=== PATIENT | female | born 1965 | race Caucasian/White ===

== ENCOUNTER 2018-04-18 17:31 | Inpatient (IN) | payer MEDICAID ==
[~2018-04-18] VITALS: Ht 152.4 cm; Wt 62.1 kg
[~2018-04-18 17:31] MED LIST: ACET325T14 PO; ACID1GRA3 PO; ALPR0.254 PO; BISA10SU65 PR; ENOX60SY4 SQ; GABA300C10 PO; Magnesium Chloride PO; OXYC1TAB7 PO; [UNRECOGNIZED DRUG - REMARK]
[2018-04-18 18:45] LABS: BASOPHILS # (AUTO) 0.14 x10^3/uL (0-0.1); BASOPHILS % (AUTO) 1 % (0-1); EOSINOPHILS # (AUTO) 0.27 x10^3/uL (0-0.4); EOSINOPHILS % (AUTO) 2 % (1-7); LYMPHOCYTES # (AUTO) 2.06 x10^3/uL (1-3.4); LYMPHOCYTES % (AUTO) 17 % (22-44); MD NO; MEAN CORPUSCULAR HEMOGLOBIN 28.6 pg (27.0-34.8); MEAN CORPUSCULAR HGB CONC 33.4 g/dL (32.4-35.8); MEAN CORPUSCULAR VOLUME 85.7 fL (80-100); MEAN PLATELET VOLUME 8.2 fL (7.4-10.4); MONOCYTES # (AUTO) 0.89 x10^3/uL (0.2-0.8); MONOCYTES % (AUTO) 7 % (2-9); NEUTROPHILS # (AUTO) 8.74 x10^3/uL (1.8-6.8); NEUTROPHILS % (AUTO) 72 % (42-75); PLATELET COUNT 511 x10^3/uL (130-400); RED BLOOD COUNT 3.77 x10^6/uL (3.82-5.3); RED CELL DISTRIBUTION WIDTH 14.8 % (9.6-15.2)
[2018-04-18 18:56] LABS: ALBUMIN 3.1 g/dL (3.4-5.0); ANION GAP 9 mmol/L (5-15); CALCIUM 9.1 mg/dL (8.5-10.1); CHLORIDE 108 mmol/L (98-107); CREATININE 0.67 mg/dL (0.55-1.02)
[2018-04-18] MEDS ORDERED: MORPHINE SULFATE 4 MG/ML, 1ML IVPush ONE (19:00)
[2018-04-18] MEDS ORDERED: DIPHENHYDRAMINE 50 MG/ML, 1ML IVPush ONE (19:00)
[2018-04-18] MEDS ORDERED: MORPHINE SULFATE 4 MG/ML, 1ML ONE (19:02)
[2018-04-18] MEDS ORDERED: DIPHENHYDRAMINE 50 MG/ML, 1ML ONE (19:02)
[2018-04-18] MEDS ORDERED: PIPERACILLIN/TAZO/PMX 3.375GM 50 ML IV ONE (21:30)
[2018-04-18] MEDS ORDERED: VANCOMYCIN PER PHARMACY MC PRN ×2 (21:30→23:00)
[2018-04-18] MEDS ORDERED: PIPERACILLIN/TAZO/PMX 3.375GM 50 ML ONE (21:32)
[2018-04-18] MEDS ORDERED: VANCOMYCIN PMX 1GM/200ML 200 ML IV ONE ×2 (22:00→23:00)
[2018-04-18] MEDS ORDERED: PHARMACOKINETIC MONITORING MC PRN (22:00)
[2018-04-18 22:29] VITALS: BP 119/79
[2018-04-18] MEDS ORDERED: ACETAMINOPHEN 325 MG TABLET PO PRN (23:00)
[2018-04-18] MEDS ORDERED: ONDANSETRON 2MG/ML, 2ML IVPush PRN (23:00)
[2018-04-18] MEDS ORDERED: KETOROLAC 30 MG/1 ML IV PRN (23:00)
[2018-04-18] MEDS ORDERED: ENOXAPARIN 40 MG/0.4 ML SQ SCH (23:00)
[2018-04-18] MEDS ORDERED: hydrALAzine 20 MG/ML, 1ML IVPush PRN (23:00)
[2018-04-18] MEDS ORDERED: ENOXAPARIN SODIUM 60 MG SQ SCH (23:00)
[2018-04-18] MEDS ORDERED: BISACODYL 10 MG SUPP PR PRN (23:00)
[2018-04-18] MEDS: morphine SULFATE 10 MG/ML, 1ML IVPush PRN (23:29)
[2018-04-19] MEDS ORDERED: RIVA20TA PO (00:07)
[2018-04-19 02:41] VITALS: BP 115/71
[2018-04-19] MEDS: PIPERACILLIN/TAZO/PMX 3.375GM 50 ML IV SCH ×4 (03:23→21:01)
[2018-04-19 08:00] VITALS: BP 106/62
[2018-04-19 08:08] LABS: BASOPHILS # (AUTO) 0.05 x10^3/uL (0-0.1); BASOPHILS % (AUTO) 1 % (0-1); EOSINOPHILS # (AUTO) 0.33 x10^3/uL (0-0.4); EOSINOPHILS % (AUTO) 4 % (1-7); LYMPHOCYTES # (AUTO) 1.01 x10^3/uL (1-3.4); LYMPHOCYTES % (AUTO) 11 % (22-44); MD SCAN; MEAN CORPUSCULAR HEMOGLOBIN 28.1 pg (27.0-34.8); MEAN CORPUSCULAR HGB CONC 32.8 g/dL (32.4-35.8); MEAN CORPUSCULAR VOLUME 85.8 fL (80-100); MEAN PLATELET VOLUME 7.8 fL (7.4-10.4); MONOCYTES # (AUTO) 0.93 x10^3/uL (0.2-0.8); MONOCYTES % (AUTO) 10 % (2-9); NEUTROPHILS # (AUTO) 6.76 x10^3/uL (1.8-6.8); NEUTROPHILS % (AUTO) 75 % (42-75); PLATELET COUNT 453 x10^3/uL (130-400); RED BLOOD COUNT 3.56 x10^6/uL (3.82-5.3); RED CELL DISTRIBUTION WIDTH 15.2 % (9.6-15.2)
[2018-04-19 08:16] LABS: ANION GAP 9 mmol/L (5-15); CALCIUM 8.4 mg/dL (8.5-10.1); CHLORIDE 111 mmol/L (98-107); CREATININE 0.53 mg/dL (0.55-1.02)
[2018-04-19] MEDS: GABAPENTIN 300 MG CAPSULE PO PRN (09:04)
[2018-04-19] MEDS: RIVAROXABAN 20 MG TABLET PO SCH (09:04)
[2018-04-19] MEDS: LACTOBACILLUS 1GM/ PACKET PO SCH ×3 (09:04→21:01)
[2018-04-19] MEDS: OXYcodone/APAP 5/325MG TABLET PO PRN ×2 (09:04→18:15)
[2018-04-19] MEDS: MAGNESIUM CHLORIDE 64 MG TABLET.DR PO SCH ×2 (09:04→21:01)
[2018-04-19] MEDS: VANCOMYCIN PMX 1GM/200ML 200 ML IV SCH (13:14)
[2018-04-19] MEDS: ACETAMINOPHEN 325 MG TABLET PO SCH ×2 (13:14→21:01)
[2018-04-19 14:00] VITALS: BP 98/53
[2018-04-19] MEDS: morphine SULFATE 10 MG/ML, 1ML IVPush PRN ×2 (15:39→21:01)
[2018-04-19] MEDS: CARVEDILOL 3.125 MG TABLET PO SCH (17:51)
[2018-04-19 20:35] VITALS: BP 91/53
[2018-04-20] MEDS: VANCOMYCIN PMX 1GM/200ML 200 ML IV SCH (00:47)
[2018-04-20] MEDS: OXYcodone/APAP 5/325MG TABLET PO PRN ×3 (00:50→18:40)
[2018-04-20] MEDS: morphine SULFATE 10 MG/ML, 1ML IVPush PRN ×4 (03:51→20:42)
[2018-04-20] MEDS: ACETAMINOPHEN 325 MG TABLET PO SCH ×3 (03:51→17:27)
[2018-04-20] MEDS: PIPERACILLIN/TAZO/PMX 3.375GM 50 ML IV SCH ×4 (03:51→23:38)
[2018-04-20 03:54] VITALS: BP 88/44
[2018-04-20 05:45] VITALS: BP 99/64
[2018-04-20] MEDS: CARVEDILOL 3.125 MG TABLET PO SCH ×2 (06:00→17:34)
[2018-04-20 06:03] VITALS: BP 91/49
[2018-04-20 07:02] LABS: BASOPHILS # (AUTO) 0.11 x10^3/uL (0-0.1); BASOPHILS % (AUTO) 1 % (0-1); EOSINOPHILS # (AUTO) 0.68 x10^3/uL (0-0.4); EOSINOPHILS % (AUTO) 9 % (1-7); LYMPHOCYTES # (AUTO) 0.76 x10^3/uL (1-3.4); LYMPHOCYTES % (AUTO) 10 % (22-44); MD NO; MEAN CORPUSCULAR HEMOGLOBIN 28.7 pg (27.0-34.8); MEAN CORPUSCULAR HGB CONC 33.3 g/dL (32.4-35.8); MEAN CORPUSCULAR VOLUME 86.2 fL (80-100); MEAN PLATELET VOLUME 7.6 fL (7.4-10.4); MONOCYTES # (AUTO) 0.83 x10^3/uL (0.2-0.8); MONOCYTES % (AUTO) 11 % (2-9); NEUTROPHILS # (AUTO) 5.15 x10^3/uL (1.8-6.8); NEUTROPHILS % (AUTO) 68 % (42-75); PLATELET COUNT 431 x10^3/uL (130-400); RED BLOOD COUNT 3.29 x10^6/uL (3.82-5.3)
[2018-04-20 07:13] LABS: ANION GAP 8 mmol/L (5-15); CALCIUM 7.7 mg/dL (8.5-10.1); CHLORIDE 111 mmol/L (98-107); CREATININE 0.55 mg/dL (0.55-1.02)
[2018-04-20 08:31] VITALS: BP 102/64
[2018-04-20] MEDS: LACTOBACILLUS 1GM/ PACKET PO SCH ×3 (09:06→20:19)
[2018-04-20] MEDS: MAGNESIUM CHLORIDE 64 MG TABLET.DR PO SCH ×2 (09:06→20:19)
[2018-04-20] MEDS: RIVAROXABAN 15 MG TABLET PO SCH (09:06)
[2018-04-20] MEDS ORDERED: MAGNESIUM SULFATE PMX 4GM/100M 100 ML IV ONE (11:30)
[2018-04-20] MEDS ORDERED: POTASSIUM CHLORIDE 20 MEQ TAB.ER.PRT PO ONE (11:30)
[2018-04-20 14:45] VITALS: BP 92/54
[2018-04-20] MEDS: LINEZOLID 600 MG TABLET PO SCH (17:27)
[2018-04-20] MEDS: GABAPENTIN 300 MG CAPSULE PO PRN (17:27)
[2018-04-20 19:44] VITALS: BP 96/59
[2018-04-20] MEDS: LIDODERM 5% PATCH TD PRN (20:20)
[2018-04-20] MEDS: OXYcodone IR 5MG TABLET PO PRN (23:38)
[2018-04-21 00:26] VITALS: BP 99/65
[2018-04-21] MEDS: ACETAMINOPHEN 325 MG TABLET PO SCH ×4 (01:52→20:24)
[2018-04-21 05:41] VITALS: BP 95/61
[2018-04-21] MEDS: OXYcodone IR 5MG TABLET PO PRN ×3 (05:43→18:02)
[2018-04-21] MEDS: LINEZOLID 600 MG TABLET PO SCH ×2 (05:43→18:04)
[2018-04-21] MEDS: PIPERACILLIN/TAZO/PMX 3.375GM 50 ML IV SCH ×4 (05:43→23:31)
[2018-04-21] MEDS: CARVEDILOL 3.125 MG TABLET PO SCH ×2 (05:43→18:00)
[2018-04-21] MEDS: LACTOBACILLUS 1GM/ PACKET PO SCH ×3 (08:16→22:14)
[2018-04-21] MEDS: MAGNESIUM CHLORIDE 64 MG TABLET.DR PO SCH ×2 (08:17→22:03)
[2018-04-21] MEDS: RIVAROXABAN 20 MG TABLET PO SCH (08:17)
[2018-04-21 08:50] VITALS: BP 96/64
[2018-04-21] MEDS: morphine SULFATE 10 MG/ML, 1ML IVPush PRN ×3 (10:50→22:04)
[2018-04-21 14:50] VITALS: BP 100/68
[2018-04-21] MEDS: HYDROmorphone 2 MG/ML, 1ML IV PRN ×2 (14:52→15:25)
[2018-04-21 20:01] VITALS: BP 105/67
[2018-04-22 01:49] VITALS: BP 101/67
[2018-04-22] MEDS: ACETAMINOPHEN 325 MG TABLET PO SCH ×4 (02:46→20:31)
[2018-04-22] MEDS: morphine SULFATE 10 MG/ML, 1ML IVPush PRN ×3 (02:46→20:31)
[2018-04-22 05:40] LABS: CALCIUM 8.3 mg/dL (8.5-10.1); CHLORIDE 110 mmol/L (98-107)
[2018-04-22 05:44] LABS: ANION GAP 8 mmol/L (5-15); CREATININE 0.54 mg/dL (0.55-1.02)
[2018-04-22] MEDS: CARVEDILOL 3.125 MG TABLET PO SCH ×2 (05:51→18:03)
[2018-04-22] MEDS: PIPERACILLIN/TAZO/PMX 3.375GM 50 ML IV SCH ×3 (05:57→20:31)
[2018-04-22] MEDS: LINEZOLID 600 MG TABLET PO SCH ×2 (05:57→18:03)
[2018-04-22 07:40] VITALS: BP 112/72
[2018-04-22] MEDS: LACTOBACILLUS 1GM/ PACKET PO SCH ×3 (08:16→20:30)
[2018-04-22] MEDS: MAGNESIUM CHLORIDE 64 MG TABLET.DR PO SCH ×2 (08:26→20:31)
[2018-04-22] MEDS: OXYcodone IR 5MG TABLET PO PRN (08:26)
[2018-04-22] MEDS ORDERED: RIVAROXABAN 10 MG TABLET PO SCH (09:00)
[2018-04-22] MEDS: RIVAROXABAN 15 MG TABLET PO SCH (09:00)
[2018-04-22] MEDS ORDERED: HEPARIN wt. based STROKE protocol MC PRN (10:00)
[2018-04-22] MEDS ORDERED: MAGNESIUM SULFATE PMX 2GM/50ML 50 ML IV ONE (10:00)
[2018-04-22] MEDS ORDERED: HEPARIN 5,000 UNITS/ML, 1ML IV ONE (10:00)
[2018-04-22] MEDS ORDERED: HEPARIN 25,000 UNITS/500ML PMX 500 ML IV PRN (10:00)
[2018-04-22] MEDS ORDERED: HEPARIN 5,000 UNITS/ML, 1ML IV PRN (10:00)
[2018-04-22] MEDS ORDERED: FENTANYL PF 100 MCG/2ML ONE ×2 (12:04→12:42)
[2018-04-22] MEDS ORDERED: MIDAZOLAM 1 MG/ML, 2ML ONE (12:04)
[2018-04-22] MEDS ORDERED: PROPOFOL 10 MG/ML, 20ML ONE (12:05)
[2018-04-22] MEDS ORDERED: ONDANSETRON ODT 8 MG PO PRN (12:30)
[2018-04-22] MEDS ORDERED: hydrALAzine 20 MG/ML, 1ML IV PRN (12:30)
[2018-04-22] MEDS ORDERED: PROMETHAZINE 25 MG SUPP PR PRN (12:30)
[2018-04-22] MEDS ORDERED: HALOPERIDOL 5 MG/ML IV PRN (12:30)
[2018-04-22] MEDS ORDERED: OXYcodone 5 MG/5 ML ORAL.SOL UDC PO PRN (12:30)
[2018-04-22] MEDS ORDERED: HYDROmorphone 2 MG/ML, 1ML IVPush PRN (12:30)
[2018-04-22] MEDS ORDERED: MORPHINE SULFATE 4 MG/ML, 1ML IVPush PRN (12:30)
[2018-04-22] MEDS ORDERED: MEPERIDINE/PF 25MG/0.5ML IVPush PRN (12:30)
[2018-04-22] MEDS ORDERED: PROMETHAZINE 12.5 MG SUPP PR PRN (12:30)
[2018-04-22] MEDS ORDERED: FENTANYL PF 100 MCG/2ML IV PRN (12:30)
[2018-04-22] MEDS ORDERED: PROMETHAZINE 25 MG/ML, 1ML IV PRN (12:30)
[2018-04-22] MEDS ORDERED: ONDANSETRON 2MG/ML, 2ML IV PRN (12:30)
[2018-04-22] MEDS ORDERED: LABETALOL 5MG/ML, 20ML IV PRN (12:30)
[2018-04-22] MEDS ORDERED: PROMETHAZINE 25 MG/ML, 1ML IM PRN ×2 (12:30)
[2018-04-22] MEDS ORDERED: ACETAMINOPHEN 650 MG/20.3 ML UDC ONE (14:02)
[2018-04-22] MEDS ORDERED: OXYcodone 5 MG/5 ML ORAL.SOL UDC ONE (14:02)
[2018-04-22 14:40] VITALS: BP 101/63
[2018-04-22 20:14] VITALS: BP 103/66
[2018-04-23] MEDS: morphine SULFATE 10 MG/ML, 1ML IVPush PRN ×4 (00:56→21:13)
[2018-04-23 01:58] VITALS: BP 109/64
[2018-04-23] MEDS: ACETAMINOPHEN 325 MG TABLET PO SCH ×4 (02:10→21:12)
[2018-04-23] MEDS: GABAPENTIN 300 MG CAPSULE PO PRN ×2 (02:10→14:51)
[2018-04-23] MEDS: PIPERACILLIN/TAZO/PMX 3.375GM 50 ML IV SCH ×4 (03:04→21:13)
[2018-04-23] MEDS: LINEZOLID 600 MG TABLET PO SCH ×2 (05:30→17:33)
[2018-04-23] MEDS: CARVEDILOL 3.125 MG TABLET PO SCH ×2 (05:30→17:33)
[2018-04-23 06:11] LABS: ANION GAP 9 mmol/L (5-15); CALCIUM 8.4 mg/dL (8.5-10.1); CHLORIDE 112 mmol/L (98-107)
[2018-04-23 06:21] LABS: MEAN CORPUSCULAR HEMOGLOBIN 28.4 pg (27.0-34.8); MEAN CORPUSCULAR HGB CONC 33.1 g/dL (32.4-35.8); MEAN CORPUSCULAR VOLUME 85.7 fL (80-100); MEAN PLATELET VOLUME 7.8 fL (7.4-10.4); PLATELET COUNT 521 x10^3/uL (130-400); RED CELL DISTRIBUTION WIDTH 14.7 % (9.6-15.2)
[2018-04-23 07:02] LABS: BASOPHILS # (AUTO) 0.04 x10^3/uL (0-0.1); BASOPHILS % (AUTO) 1 % (0-1); EOSINOPHILS # (AUTO) 0.41 x10^3/uL (0-0.4); EOSINOPHILS % (AUTO) 9 % (1-7); LYMPHOCYTES # (AUTO) 1.49 x10^3/uL (1-3.4); LYMPHOCYTES % (AUTO) 34 % (22-44); MD SCAN; MONOCYTES # (AUTO) 0.65 x10^3/uL (0.2-0.8); MONOCYTES % (AUTO) 15 % (2-9); NEUTROPHILS # (AUTO) 1.84 x10^3/uL (1.8-6.8); NEUTROPHILS % (AUTO) 42 % (42-75)
[2018-04-23 08:23] VITALS: BP 115/66
[2018-04-23] MEDS: MAGNESIUM CHLORIDE 64 MG TABLET.DR PO SCH (09:19)
[2018-04-23] MEDS: RIVAROXABAN 20 MG TABLET PO SCH (09:19)
[2018-04-23] MEDS: LACTOBACILLUS 1GM/ PACKET PO SCH ×3 (09:19→21:12)
[2018-04-23 15:55] VITALS: BP 106/67
[2018-04-23 20:00] VITALS: BP 100/64
[2018-04-23] MEDS: MAGNESIUM CHLORIDE 70MG TAB DR PO SCH (21:10)
[2018-04-24] MEDS: OXYcodone IR 5MG TABLET PO PRN ×2 (00:02→11:55)
[2018-04-24] MEDS: GABAPENTIN 300 MG CAPSULE PO PRN ×2 (00:03→15:22)
[2018-04-24 02:00] VITALS: BP 99/64
[2018-04-24] MEDS: ACETAMINOPHEN 325 MG TABLET PO SCH ×4 (03:23→21:19)
[2018-04-24] MEDS: PIPERACILLIN/TAZO/PMX 3.375GM 50 ML IV SCH ×4 (03:23→23:18)
[2018-04-24] MEDS: CARVEDILOL 3.125 MG TABLET PO SCH (05:41)
[2018-04-24] MEDS: LINEZOLID 600 MG TABLET PO SCH ×2 (05:41→16:48)
[2018-04-24 05:54] LABS: BASOPHILS # (AUTO) 0.03 x10^3/uL (0-0.1); BASOPHILS % (AUTO) 1 % (0-1); EOSINOPHILS # (AUTO) 0.42 x10^3/uL (0-0.4); EOSINOPHILS % (AUTO) 8 % (1-7); LYMPHOCYTES # (AUTO) 1.73 x10^3/uL (1-3.4); LYMPHOCYTES % (AUTO) 33 % (22-44); MD NO; MEAN CORPUSCULAR HGB CONC 32.5 g/dL (32.4-35.8); MEAN CORPUSCULAR VOLUME 86.3 fL (80-100); MEAN PLATELET VOLUME 7.8 fL (7.4-10.4); MONOCYTES # (AUTO) 0.64 x10^3/uL (0.2-0.8); MONOCYTES % (AUTO) 12 % (2-9); NEUTROPHILS # (AUTO) 2.44 x10^3/uL (1.8-6.8); NEUTROPHILS % (AUTO) 46 % (42-75); PLATELET COUNT 540 x10^3/uL (130-400); RED BLOOD COUNT 3.65 x10^6/uL (3.82-5.3); RED CELL DISTRIBUTION WIDTH 14.7 % (9.6-15.2)
[2018-04-24 05:56] LABS: CHLORIDE 114 mmol/L (98-107)
[2018-04-24 06:00] LABS: ANION GAP 8 mmol/L (5-15); CALCIUM 8.5 mg/dL (8.5-10.1); CREATININE 0.51 mg/dL (0.55-1.02)
[2018-04-24] MEDS: MAGNESIUM CHLORIDE 70MG TAB DR PO SCH ×2 (09:00→21:19)
[2018-04-24] MEDS: LACTOBACILLUS 1GM/ PACKET PO SCH ×3 (09:00→21:19)
[2018-04-24] MEDS: morphine SULFATE 10 MG/ML, 1ML IVPush PRN ×3 (09:22→21:20)
[2018-04-24] MEDS: RIVAROXABAN 15 MG TABLET PO SCH (09:22)
[2018-04-24] MEDS ORDERED: FLUMAZENIL 0.1 MG/1 ML, 5ML ONE (09:28)
[2018-04-24] MEDS ORDERED: NALOXONE 1 MG/ML, 2ML ONE (09:28)
[2018-04-24] MEDS ORDERED: MIDAZOLAM 1 MG/ML, 5ML ONE ×2 (09:28→09:58)
[2018-04-24] MEDS ORDERED: GADOBUTROL 7.5 MMOL/7.5 ML PFS ONE (10:51)
[2018-04-24 15:13] VITALS: BP 132/86
[2018-04-24] MEDS: HYDROmorphone 2 MG/ML, 1ML IV PRN (15:22)
[2018-04-24 19:40] VITALS: BP 111/73
[2018-04-25 01:28] VITALS: BP 93/54
[2018-04-25] MEDS: ACETAMINOPHEN 325 MG TABLET PO SCH ×4 (03:35→21:44)
[2018-04-25] MEDS: PIPERACILLIN/TAZO/PMX 3.375GM 50 ML IV SCH ×3 (05:12→18:24)
[2018-04-25] MEDS: LINEZOLID 600 MG TABLET PO SCH ×2 (05:12→18:24)
[2018-04-25 08:28] VITALS: BP 115/78
[2018-04-25] MEDS: RIVAROXABAN 20 MG TABLET PO SCH (08:50)
[2018-04-25] MEDS: MAGNESIUM CHLORIDE 70MG TAB DR PO SCH ×2 (08:50→21:44)
[2018-04-25] MEDS: morphine SULFATE 10 MG/ML, 1ML IVPush PRN ×3 (08:50→21:43)
[2018-04-25] MEDS: LACTOBACILLUS 1GM/ PACKET PO SCH ×3 (08:50→21:44)
[2018-04-25 15:55] VITALS: BP 107/65
[2018-04-25 19:26] VITALS: BP 136/88
[2018-04-25] MEDS: GABAPENTIN 300 MG CAPSULE PO PRN (21:43)
[2018-04-26] MEDS: PIPERACILLIN/TAZO/PMX 3.375GM 50 ML IV SCH ×5 (00:18→23:37)
[2018-04-26 00:51] VITALS: BP 111/70
[2018-04-26] MEDS: ACETAMINOPHEN 325 MG TABLET PO SCH ×4 (03:40→20:57)
[2018-04-26 04:32] LABS: BASOPHILS # (AUTO) 0.03 x10^3/uL (0-0.1); BASOPHILS % (AUTO) 1 % (0-1); EOSINOPHILS # (AUTO) 0.45 x10^3/uL (0-0.4); EOSINOPHILS % (AUTO) 6 % (1-7); LYMPHOCYTES # (AUTO) 2.25 x10^3/uL (1-3.4); LYMPHOCYTES % (AUTO) 31 % (22-44); MD NO; MEAN CORPUSCULAR HEMOGLOBIN 28.1 pg (27.0-34.8); MEAN CORPUSCULAR HGB CONC 33.2 g/dL (32.4-35.8); MEAN CORPUSCULAR VOLUME 84.6 fL (80-100); MEAN PLATELET VOLUME 7.3 fL (7.4-10.4); MONOCYTES % (AUTO) 8 % (2-9); NEUTROPHILS # (AUTO) 3.95 x10^3/uL (1.8-6.8); NEUTROPHILS % (AUTO) 54 % (42-75); PLATELET COUNT 527 x10^3/uL (130-400); RED BLOOD COUNT 3.54 x10^6/uL (3.82-5.3)
[2018-04-26 04:47] LABS: ALBUMIN 2.1 g/dL (3.4-5.0); ANION GAP 9 mmol/L (5-15); CALCIUM 8.4 mg/dL (8.5-10.1); CHLORIDE 113 mmol/L (98-107)
[2018-04-26 04:50] LABS: ALANINE AMINOTRANSFERASE 22 U/L (12-78); ALKALINE PHOSPHATASE 81 U/L (45-117); BILIRUBIN,TOTAL 0.2 mg/dL (0.2-1.0); CREATININE 0.58 mg/dL (0.55-1.02); TOTAL PROTEIN 5.6 g/dL (6.4-8.2)
[2018-04-26] MEDS: LINEZOLID 600 MG TABLET PO SCH ×2 (06:06→17:20)
[2018-04-26 07:53] VITALS: BP 99/64
[2018-04-26] MEDS: morphine SULFATE 10 MG/ML, 1ML IVPush PRN ×3 (08:51→20:52)
[2018-04-26] MEDS: RIVAROXABAN 15 MG TABLET PO SCH (08:54)
[2018-04-26] MEDS: LACTOBACILLUS 1GM/ PACKET PO SCH ×3 (08:54→20:52)
[2018-04-26] MEDS: MAGNESIUM CHLORIDE 70MG TAB DR PO SCH ×2 (08:55→20:51)
[2018-04-26] MEDS: HYDROmorphone 2 MG/ML, 1ML IV PRN (10:20)
[2018-04-26 13:39] VITALS: BP 102/68
[2018-04-26] MEDS: ENOXAPARIN 60 MG/0.6 ML SQ SCH (15:05)
[2018-04-26 15:10] LABS: INTERNATIONAL NORMALIZED RATIO 1.41 (0.93-1.1); PROTHROMBIN TIME 14.8 Seconds (9.6-11.5)
[2018-04-26] MEDS ORDERED: WARFARIN 7.5 MG TABLET PO-COUM ONE (17:00)
[2018-04-26 19:22] VITALS: BP 101/62
[2018-04-27 02:38] VITALS: BP 108/69
[2018-04-27] MEDS: ACETAMINOPHEN 325 MG TABLET PO SCH ×4 (02:48→22:19)
[2018-04-27] MEDS: GABAPENTIN 300 MG CAPSULE PO PRN (02:48)
[2018-04-27] MEDS: morphine SULFATE 10 MG/ML, 1ML IVPush PRN ×4 (02:49→22:20)
[2018-04-27] MEDS: LINEZOLID 600 MG TABLET PO SCH ×2 (05:20→18:27)
[2018-04-27] MEDS: PIPERACILLIN/TAZO/PMX 3.375GM 50 ML IV SCH ×3 (05:21→18:26)
[2018-04-27] MEDS: ENOXAPARIN 60 MG/0.6 ML SQ SCH ×2 (05:21→18:27)
[2018-04-27 05:47] LABS: BASOPHILS # (AUTO) 0.04 x10^3/uL (0-0.1); BASOPHILS % (AUTO) 1 % (0-1); EOSINOPHILS # (AUTO) 0.49 x10^3/uL (0-0.4); EOSINOPHILS % (AUTO) 7 % (1-7); LYMPHOCYTES # (AUTO) 2.13 x10^3/uL (1-3.4); LYMPHOCYTES % (AUTO) 29 % (22-44); MD NO; MEAN CORPUSCULAR HEMOGLOBIN 27.8 pg (27.0-34.8); MEAN CORPUSCULAR HGB CONC 32.7 g/dL (32.4-35.8); MEAN CORPUSCULAR VOLUME 85.1 fL (80-100); MEAN PLATELET VOLUME 7.7 fL (7.4-10.4); MONOCYTES # (AUTO) 0.63 x10^3/uL (0.2-0.8); MONOCYTES % (AUTO) 9 % (2-9); NEUTROPHILS # (AUTO) 4.11 x10^3/uL (1.8-6.8); NEUTROPHILS % (AUTO) 56 % (42-75); PLATELET COUNT 508 x10^3/uL (130-400); RED BLOOD COUNT 3.71 x10^6/uL (3.82-5.3); RED CELL DISTRIBUTION WIDTH 15.2 % (9.6-15.2)
[2018-04-27 05:51] LABS: INTERNATIONAL NORMALIZED RATIO 1.07 (0.93-1.1); PROTHROMBIN TIME 11.3 Seconds (9.6-11.5)
[2018-04-27 05:55] LABS: ALANINE AMINOTRANSFERASE 23 U/L (12-78); ALBUMIN 2.4 g/dL (3.4-5.0); ANION GAP 7 mmol/L (5-15); C-REACTIVE PROTEIN, QUANT 0.86 mg/dL (0.02-0.49); CALCIUM 8.3 mg/dL (8.5-10.1); CHLORIDE 113 mmol/L (98-107); CREATININE 0.53 mg/dL (0.55-1.02)
[2018-04-27 05:58] LABS: ALKALINE PHOSPHATASE 83 U/L (45-117); BILIRUBIN,TOTAL 0.2 mg/dL (0.2-1.0); TOTAL PROTEIN 5.8 g/dL (6.4-8.2)
[2018-04-27 06:15] LABS: HCT (SEDRATE) 31.5 % (34.6-47.8)
[2018-04-27 07:24] VITALS: BP 96/62
[2018-04-27 08:39] LABS: BASOPHILS # (AUTO) 0.04 x10^3/uL (0-0.1); BASOPHILS % (AUTO) 1 % (0-1); EOSINOPHILS # (AUTO) 0.47 x10^3/uL (0-0.4); EOSINOPHILS % (AUTO) 7 % (1-7); LYMPHOCYTES # (AUTO) 2.37 x10^3/uL (1-3.4); LYMPHOCYTES % (AUTO) 34 % (22-44); MD NO; MEAN CORPUSCULAR HGB CONC 32.7 g/dL (32.4-35.8); MEAN CORPUSCULAR VOLUME 85.6 fL (80-100); MEAN PLATELET VOLUME 7.5 fL (7.4-10.4); MONOCYTES # (AUTO) 0.54 x10^3/uL (0.2-0.8); MONOCYTES % (AUTO) 8 % (2-9); NEUTROPHILS # (AUTO) 3.56 x10^3/uL (1.8-6.8); NEUTROPHILS % (AUTO) 51 % (42-75); PLATELET COUNT 513 x10^3/uL (130-400); RED BLOOD COUNT 3.84 x10^6/uL (3.82-5.3); RED CELL DISTRIBUTION WIDTH 15.1 % (9.6-15.2)
[2018-04-27 08:49] LABS: ALANINE AMINOTRANSFERASE 23 U/L (12-78); ALBUMIN 2.4 g/dL (3.4-5.0); ANION GAP 10 mmol/L (5-15); CALCIUM 8.8 mg/dL (8.5-10.1); CHLORIDE 112 mmol/L (98-107); CREATININE 0.57 mg/dL (0.55-1.02)
[2018-04-27 08:51] LABS: ALKALINE PHOSPHATASE 86 U/L (45-117); BILIRUBIN,TOTAL 0.3 mg/dL (0.2-1.0); TOTAL PROTEIN 6.1 g/dL (6.4-8.2)
[2018-04-27] MEDS: LACTOBACILLUS 1GM/ PACKET PO SCH ×3 (09:51→22:19)
[2018-04-27] MEDS: MAGNESIUM CHLORIDE 70MG TAB DR PO SCH ×2 (09:51→22:19)
[2018-04-27] MEDS: WARFARIN MODERAT DOSE PROTOCOL XX SCH (12:00)
[2018-04-27 12:50] VITALS: BP 103/69
[2018-04-27] MEDS ORDERED: WARFARIN 7.5 MG TABLET PO-COUM ONE (18:00)
[2018-04-27] MEDS: OXYcodone IR 5MG TABLET PO PRN (18:32)
[2018-04-27 19:43] VITALS: BP 105/66
[2018-04-27] MEDS: LIDODERM 5% PATCH TD PRN (22:19)
[2018-04-28] MEDS: PIPERACILLIN/TAZO/PMX 3.375GM 50 ML IV SCH ×2 (01:28→08:49)
[2018-04-28 03:21] VITALS: BP 98/64
[2018-04-28] MEDS: OXYcodone IR 5MG TABLET PO PRN ×2 (03:33→16:33)
[2018-04-28 05:49] LABS: BASOPHILS # (AUTO) 0.11 x10^3/uL (0-0.1); BASOPHILS % (AUTO) 2 % (0-1); EOSINOPHILS % (AUTO) 6 % (1-7); LYMPHOCYTES # (AUTO) 2.16 x10^3/uL (1-3.4); LYMPHOCYTES % (AUTO) 30 % (22-44); MD NO; MEAN CORPUSCULAR HEMOGLOBIN 28.4 pg (27.0-34.8); MEAN CORPUSCULAR HGB CONC 33.1 g/dL (32.4-35.8); MEAN CORPUSCULAR VOLUME 85.8 fL (80-100); MEAN PLATELET VOLUME 7.4 fL (7.4-10.4); MONOCYTES % (AUTO) 8 % (2-9); NEUTROPHILS # (AUTO) 3.97 x10^3/uL (1.8-6.8); NEUTROPHILS % (AUTO) 55 % (42-75); PLATELET COUNT 485 x10^3/uL (130-400); RED BLOOD COUNT 3.87 x10^6/uL (3.82-5.3); RED CELL DISTRIBUTION WIDTH 15.4 % (9.6-15.2)
[2018-04-28 05:57] LABS: INTERNATIONAL NORMALIZED RATIO 1.08 (0.93-1.1); PROTHROMBIN TIME 11.4 Seconds (9.6-11.5)
[2018-04-28 06:03] LABS: ALBUMIN 2.5 g/dL (3.4-5.0); ANION GAP 9 mmol/L (5-15); CALCIUM 8.9 mg/dL (8.5-10.1); CHLORIDE 113 mmol/L (98-107); CREATININE 0.58 mg/dL (0.55-1.02)
[2018-04-28] MEDS: ACETAMINOPHEN 325 MG TABLET PO SCH ×2 (06:12→12:02)
[2018-04-28] MEDS: LINEZOLID 600 MG TABLET PO SCH (06:12)
[2018-04-28] MEDS: ENOXAPARIN 60 MG/0.6 ML SQ SCH ×2 (06:13→16:34)
[2018-04-28] MEDS: morphine SULFATE 10 MG/ML, 1ML IVPush PRN ×2 (06:13→10:33)
[2018-04-28 07:16] VITALS: BP 94/56
[2018-04-28] MEDS: LACTOBACILLUS 1GM/ PACKET PO SCH ×2 (08:50→16:33)
[2018-04-28] MEDS: MAGNESIUM CHLORIDE 70MG TAB DR PO SCH (08:50)
[2018-04-28] MEDS ORDERED: WARF3TAB52 PO (09:39)
[2018-04-28] MEDS ORDERED: LINE600T33 PO (09:39)
[2018-04-28] MEDS ORDERED: CIPROFLOXACIN 500 MG TABLET PO SCH (10:30)
[2018-04-28] MEDS ORDERED: DAPTOMYCIN 370 MG in SODIUM CHLORIDE 0.9% 100 ML IVPB SCH (10:30)
[2018-04-28] MEDS ORDERED: HYDROmorphone 2 MG/ML, 1ML IVPush PRN (11:30)
[2018-04-28] MEDS: WARFARIN MODERAT DOSE PROTOCOL XX SCH (12:00)
[2018-04-28 12:01] VITALS: BP 105/71
[2018-04-28] MEDS ORDERED: WARF7.5T46 PO (12:56)
[2018-04-28] MEDS ORDERED: CIPR500T87 PO (12:56)
[2018-04-28 14:00] VITALS: BP 125/80
[2018-04-28] MEDS ORDERED: WARFARIN 7.5 MG TABLET PO-COUM ONE (18:00)
== END 2018-04-28 17:35 | DRG 853 ==
LOC: ED 20:22 → 3NE 21:16
PROVIDERS: ADMIT Internal Medicine; ATTEND Internal Medicine
PROC: 0JDN0ZZ Extraction of Right Lower Leg Subcutaneous Tissue and Fascia, Open Approach (ICD-10-PCS; 2018-04-22)
PROC: 0JDP0ZZ Extraction of Left Lower Leg Subcutaneous Tissue and Fascia, Open Approach (ICD-10-PCS; 2018-04-22)
PROC: 0JDQ0ZZ Extraction of Right Foot Subcutaneous Tissue and Fascia, Open Approach (ICD-10-PCS; 2018-04-22)
PROC: 0JDR0ZZ Extraction of Left Foot Subcutaneous Tissue and Fascia, Open Approach (ICD-10-PCS; principal; 2018-04-22 12:00)
PROC: 02HV33Z Insertion of Infusion Device into Superior Vena Cava, Percutaneous Approach (ICD-10-PCS; 2018-04-28)
PROC: B5181ZA Fluoroscopy of Superior Vena Cava using Low Osmolar Contrast, Guidance (ICD-10-PCS; 2018-04-28)
PROC: B548ZZA Ultrasonography of Superior Vena Cava, Guidance (ICD-10-PCS; 2018-04-28)
DX: A41.9 Sepsis, unspecified organism (principal); R53.2 Functional quadriplegia; L97.919 Non-pressure chronic ulcer of unspecified part of right lower leg with unspecified severity; L97.929 Non-pressure chronic ulcer of unspecified part of left lower leg with unspecified severity; M87.9 Osteonecrosis, unspecified; L03.116 Cellulitis of left lower limb; L03.115 Cellulitis of right lower limb; D63.8 Anemia in other chronic diseases classified elsewhere; E83.42 Hypomagnesemia; E87.6 Hypokalemia; F17.200 Nicotine dependence, unspecified, uncomplicated; F31.9 Bipolar disorder, unspecified; F41.1 Generalized anxiety disorder; G47.00 Insomnia, unspecified; M16.0 Bilateral primary osteoarthritis of hip; M60.9 Myositis, unspecified; M72.9 Fibroblastic disorder, unspecified; Q65.89 Other specified congenital deformities of hip; R29.6 Repeated falls; R32 Unspecified urinary incontinence; W19.XXXA Unspecified fall, initial encounter; Y92.009 Unspecified place in unspecified non-institutional (private) residence as the place of occurrence of the external cause; Z79.01 Long term (current) use of anticoagulants; Z79.02 Long term (current) use of antithrombotics/antiplatelets; Z86.718 Personal history of other venous thrombosis and embolism; Z90.710 Acquired absence of both cervix and uterus; I95.9 Hypotension, unspecified; B95.62 Methicillin resistant Staphylococcus aureus infection as the cause of diseases classified elsewhere; B96.1 Klebsiella pneumoniae [K. pneumoniae] as the cause of diseases classified elsewhere
CPT/HCPCS: 36415; 36569; 76937; 77001; 80048; 80053; 82040; 82550; 83605; 83735; 84100; 85025; 85610; 85651; 86140; 87015; 87040; 87070; 87075; 87077; 87102; 87116; 87147; 87186; 87205; 87206; 93005; 93306; 96365; 96367; 96375; 99156; 99157; A9585; G0378; J0878; J1170; J1650; J2250; J2543; J2704; J3010; J3370; C1751; J1200; J2270; J2310; J3475